=== PATIENT | female | born 1995 | race Caucasian/White ===

== ENCOUNTER 2019-07-27 22:18 | Emergency (ER) | payer OTHER ==
[~2019-07-27] VITALS: Ht 170.2 cm; Wt 90.9 kg
--- NOTE | 2019-07-27 22:40 | NUR ---
[facility] [employer] SCIENTIST, CALL PLACED TO [facility] [address] FOR [facility].
[2019-07-27] MEDS ORDERED: CefTRIAXone 250MG IM Kit w/LIDOcaine IM ONE (23:35)
[2019-07-27] MEDS ORDERED: azithromycin 250mg tablet PO ONE (23:35)
[2019-07-27 23:59] LABS: URINE HCG NEGATIVE (NEG)
[2019-07-28 04:04] VITALS: BP 123/91
--- NOTE | 2019-07-28 04:09 | NUR ---
Pt arrived at 2218 on 07/27 for SART exam. [facility] advocate in room and offered resources but patient refused and advocate left. Pt brought back to SART room. Exam started 0005 07/28 with ANA goncalves, Pt gave verbal and written concent for exam with understanding at any point she can stop the exam or refuse parts of the exam if she needed. Pt agreed to swabs, collazo lamp used as well as speculum exam. Friend Moon at bedside throughout exam. 07/[address] Dailey saw patient and gave medical clearance. Pt was discharged after receiving std prophilaxis meds of azithromycin po and rocephin im and ovral. Pt agreeable to f/u with [facility] for f/u sti/hiv/hepatitis screenings, Erica ESPINOZA helped with discharge information including ER discharge and helped to walk patient and friend Moon out to another friend waiting in lobby for ride home. Pt encouraged to use [facility] for follow up as well and symptoms and potential of sadness, depression were discussed with pt and resourses to help.
== END 2019-07-28 04:49 | disposition home or self-care (01) ==
LOC: EEVIPCON 22:18 → ER 22:19
DX: T76.21XA Adult sexual abuse, suspected, initial encounter (principal); X58.XXXA Exposure to other specified factors, initial encounter; Y92.89 Other specified places as the place of occurrence of the external cause; Y93.89 Activity, other specified; Y99.8 Other external cause status
CPT/HCPCS: 81025; 96372; 99284